=== PATIENT | male | born 1945 | race Caucasian/White ===

== ENCOUNTER 2018-10-24 10:44 | Outpatient (CLI) | payer MEDICARE ==
[2018-10-24 11:34] LABS: BASOPHILS # (AUTO) 0.1 X10'3 (0-0.2); BASOPHILS % (AUTO) 1.6 % (0-1); EOSINOPHILS # (AUTO) 0.1 X10'3 (0-0.9); EOSINOPHILS % (AUTO) 1.5 % (0-6); HEMATOCRIT 39.8 % (42.0-52.0); HEMOGLOBIN 13.3 g/dl (14.0-17.9); LYMPHOCYTES # (AUTO) 0.9 X10'3 (1.1-4.8); MEAN CORPUSCULAR HGB CONC 33.5 g/dL (33.0-36.5); MEAN CORPUSCULAR VOLUME 95.5 FL (78-98); MEAN PLATELET VOLUME 7.9 FL (7.4-10.4); MONOCYTES # (AUTO) 0.5 X10'3 (0-0.9); MONOCYTES % (AUTO) 12.9 % (2-12); NEUTROPHILS # (AUTO) 2.4 X10'3 (1.8-7.7); PLATELET COUNT 250 X10'3 (140-440); RED BLOOD COUNT 4.17 X10'6 (4.70-6.10); RED CELL DISTRIBUTION WIDTH 14.1 % (11.5-14.5); WHITE BLOOD COUNT 3.9 X10'3 (4.5-11.0)
[2018-10-24 11:42] LABS: PARTIAL THROMBOPLASTIN TIME 27 SECONDS (22-32); PROTHROMBIN TIME 10.4 SECONDS (9.0-12.0)
[2018-10-24 11:50] LABS: ALANINE AMINOTRANSFERASE 28 U/L (12-78); ALBUMIN 3.5 G/DL (3.4-5.0); ALKALINE PHOSPHATASE 60 IU/L (46-116); ANION GAP 6 (8-16); ASPARTATE AMINO TRANSFERASE 19 U/L (10-37); BILIRUBIN,TOTAL 0.3 MG/DL (0.1-1.0); BLOOD UREA NITROGEN 19 MG/DL (7-18); BUN/CREATININE RATIO 19.6 (5.4-32.0); CALCIUM 9.3 MG/DL (8.5-10.1); CHLORIDE 103 MMOL/L (99-107); CREATININE 0.97 MG/DL (0.60-1.10); GLUCOSE 79 MG/DL (70-104); POTASSIUM 4.6 MMOL/L (3.5-5.1); SODIUM 138 MMOL/L (135-145); TOTAL CARBON DIOXIDE 28.9 MMOL/L (24-32); eGFR 76 ML/MIN
== END 2018-10-24 23:59 | disposition home or self-care (01) ==
LOC: LAB 10:44
PROVIDERS: ATTEND Otolaryngology
DX: D69.1 Qualitative platelet defects (principal)
CPT/HCPCS: 36415; 80053; 85025; 85576; 85610; 85730

== ENCOUNTER 2023-09-18 07:28 | Day surgery (SDC) | payer OTHER, MEDICARE ==
[2023-09-12 14:51] LABS: BASOPHILS # (AUTO) 0.1 X10'3 (0-0.2); BASOPHILS % (AUTO) 1.2 % (0-1); EOSINOPHILS # (AUTO) 0.1 X10'3 (0-0.9); EOSINOPHILS % (AUTO) 1.7 % (0-6); LYMPHOCYTES # (AUTO) 1.1 X10'3 (1.1-4.8); LYMPHOCYTES % (AUTO) 23.3 % (21-51); MEAN CORPUSCULAR HEMOGLOBIN 31.3 PG (27.0-31.0); MEAN CORPUSCULAR HGB CONC 32.9 g/dL (33.0-36.5); MEAN CORPUSCULAR VOLUME 95.3 FL (78-98); MEAN PLATELET VOLUME 8.4 FL (7.4-10.4); MONOCYTES # (AUTO) 0.7 X10'3 (0-0.9); MONOCYTES % (AUTO) 14.4 % (2-12); NEUTROPHILS # (AUTO) 2.9 X10'3 (1.8-7.7); NEUTROPHILS % (AUTO) 59.4 % (42-75); PRE OP HEMATOCRIT 38.9 % (42.0-52.0); PRE OP HEMOGLOBIN 12.8 g/dL (14.0-17.9); PRE OP PLATELET COUNT 198 X10'3 (140-440); PRE OP WHITE BLOOD COUNT 4.9 10'3 (4.8-10.8); RED BLOOD COUNT 4.08 X10'6 (4.70-6.10); RED CELL DISTRIBUTION WIDTH 14.8 % (11.5-14.5)
[2023-09-12 15:14] LABS: ALBUMIN 3.4 G/DL (3.4-5.0); ALKALINE PHOSPHATASE 54 IU/L (46-116); BLOOD UREA NITROGEN 20 MG/DL (7-18); BUN/CREATININE RATIO 15.3 (10.0-20.0); CALCIUM 8.9 MG/DL (8.5-10.1); CHLORIDE 107 MMOL/L (99-107); CREATININE 1.31 MG/DL (0.60-1.10); PRE OP ALT 42 U/L (30-65); PRE OP ANION GAP 11 (8-16); PRE OP AST 28 U/L (10-37); PRE OP BILIRUB, TOTAL 0.3 MG/DL (0.0-1.0); PRE OP GLUCOSE 120 MG/DL (70-104); PRE OP POTASSIUM 4.2 MMOL/L (3.4-5.1); PRE OP SODIUM 144 MMOL/L (135-145); TOTAL CARBON DIOXIDE 26.4 MMOL/L (24-32); TOTAL PROTEIN 6.9 G/DL (6.4-8.2); eGFR 53 ML/MIN
[~2023-09-18] VITALS: Ht 190.5 cm; Wt 92.0 kg
[2023-09-18] VITALS (12 sets, daily range): BP systolic 92–138; BP diastolic 52–82; PULSE 46–59; RESP 12–17; TEMP 97.6; O2SAT 93–98
[2023-09-18] MEDS: cefazolin 2gm/D5W 100mL 100 ML IV ONE (05:30)
[~2023-09-18 07:28] MED LIST: APIX5TAB3 PO; CALC-1215 PO; CHOL200012 PO; DOCUMENT DATE & TIME OF BETA-BLOCKER PO ONE; FINA5TAB11 PO; HYDR12.55 PO; LISI40TA13 PO; LOP12.5T PO; OMEG-166 PO; VITA1CAP PO; [UNRECOGNIZED DRUG - CODE] PO
[2023-09-18] MEDS: ringers solution, lacted 1,000 ML IV SCH (07:54)
[2023-09-18] MEDS: famotidine 20mg tablet PO ONE (07:54)
[2023-09-18] MEDS ORDERED: LIDOcaine 0.5% (5mg/ml) 50ml vial ONE (09:11)
[2023-09-18] MEDS ORDERED: fentaNYL/PF 50MCG/1 ML 2ML syringe ONE (09:12)
[2023-09-18] MEDS ORDERED: midazolam 1 mg/ML 2ml injection ONE (09:12)
[2023-09-18] MEDS ORDERED: ringers solution, lacted 1,000 ML IV SCH (09:30)
[2023-09-18] MEDS ORDERED: proCHLORperazine 10 MG/2 ml inj IV PRN (09:30)
[2023-09-18] MEDS ORDERED: ondansetron/PF 4mg/2ml inj IV PRN (09:30)
[2023-09-18] MEDS ORDERED: morphine 4 MG/ML inj SYRINge IV PRN (09:30)
[2023-09-18] MEDS ORDERED: meperidine/PF 25mg/ml syringe IV PRN ×2 (09:30)
[2023-09-18] MEDS ORDERED: morphine 2 MG/ML inj. syringe IV PRN (09:30)
[2023-09-18] MEDS ORDERED: propofol inj 20 ML IV ONE (09:49)
[2023-09-18] MEDS: LIDOcaine 2% (20mg/ml) 5ml vial ONE (09:56)
[2023-09-18] MEDS: meperidine/PF 25mg/ml syringe IV PRN (10:08)
== END 2023-09-18 11:32 | disposition home or self-care (01) ==
LOC: PAS 07:28
PROVIDERS: ATTEND Orthopaedic Surgery Hand Surgery
DX: M70.21 Olecranon bursitis, right elbow (principal); M1A.0211 Idiopathic chronic gout, right elbow, with tophus (tophi); M10.042 Idiopathic gout, left hand; I10 Essential (primary) hypertension; G47.30 Sleep apnea, unspecified; Z79.899 Other long term (current) drug therapy; Z98.890 Other specified postprocedural states; Z96.652 Presence of left artificial knee joint
CPT/HCPCS: 24105; 26115; 36415; 80053; 82948; 85025; J0690; J2175; J2250; J2704; J3010; J3490; J7030; J7120; Z7506; Z7512; A4215; A4565; A4618; A6446; A6449; A7000

== ENCOUNTER 2024-08-05 06:20 | Day surgery (SDC) | payer OTHER, MEDICARE ==
[2024-07-31 14:49] LABS: BASOPHILS # (AUTO) 0.1 X10'3 (0-0.2); EOSINOPHILS # (AUTO) 0.2 X10'3 (0-0.9); EOSINOPHILS % (AUTO) 3.7 % (0-6); LYMPHOCYTES # (AUTO) 0.9 X10'3 (1.1-4.8); LYMPHOCYTES % (AUTO) 15.1 % (21-51); MEAN CORPUSCULAR HEMOGLOBIN 32.1 PG (27.0-31.0); MEAN CORPUSCULAR HGB CONC 33.1 g/dL (33.0-36.5); MEAN CORPUSCULAR VOLUME 97.1 FL (78-98); MEAN PLATELET VOLUME 7.9 FL (7.4-10.4); MONOCYTES # (AUTO) 0.8 X10'3 (0-0.9); MONOCYTES % (AUTO) 13.3 % (2-12); NEUTROPHILS # (AUTO) 3.8 X10'3 (1.8-7.7); NEUTROPHILS % (AUTO) 66.9 % (42-75); PRE OP HEMATOCRIT 35.6 % (42.0-52.0); PRE OP HEMOGLOBIN 11.8 g/dL (14.0-17.9); PRE OP PLATELET COUNT 241 X10'3 (140-440); PRE OP WHITE BLOOD COUNT 5.7 10'3 (4.8-10.8); RED BLOOD COUNT 3.66 X10'6 (4.70-6.10); RED CELL DISTRIBUTION WIDTH 14.9 % (11.5-14.5)
[2024-07-31 15:28] LABS: ALBUMIN 3.6 G/DL (3.4-5.0); ALBUMIN/GLOBULIN RATIO 1.2 (1.1-1.5); ALKALINE PHOSPHATASE 68 IU/L (46-116); BLOOD UREA NITROGEN 28 MG/DL (7-18); BUN/CREATININE RATIO 21.4 (10.0-20.0); CALCIUM 8.9 MG/DL (8.5-10.1); CHLORIDE 105 MMOL/L (99-107); CREATININE 1.31 MG/DL (0.60-1.10); PRE OP ALT 34 U/L (30-65); PRE OP ANION GAP 9 (8-16); PRE OP AST 22 U/L (10-37); PRE OP BILIRUB, TOTAL 0.2 MG/DL (0.0-1.0); PRE OP GLUCOSE 181 MG/DL (70-104); PRE OP POTASSIUM 4.2 MMOL/L (3.4-5.1); PRE OP SODIUM 138 MMOL/L (135-145); TOTAL CARBON DIOXIDE 24.1 MMOL/L (24-32); TOTAL PROTEIN 6.6 G/DL (6.4-8.2); eGFR 53 ML/MIN
[2024-08-05] VITALS (7 sets, daily range): BP systolic 137–142; BP diastolic 76–79; PULSE 53–66; RESP 11–16; TEMP 97.7; O2SAT 97–100
[~2024-08-05] VITALS: Ht 190.5 cm; Wt 91.1 kg
[~2024-08-05 06:20] MED LIST changes: +ALLO100T15 PO; +AMLO5TAB PO; -DOCUMENT DATE & TIME OF BETA-BLOCKER PO ONE; +FLEC50TA28 PO
[2024-08-05] MEDS ORDERED: BUPIVAcaine/PF 2.5mg/ml (0.25%) 10ml vial ONE (06:48)
[2024-08-05] MEDS ORDERED: LIDOcaine 2% (20mg/ml) 5ml vial ONE (06:48)
[2024-08-05] MEDS: ringers solution, lacted 1,000 ML IV SCH (07:12)
[2024-08-05] MEDS: famotidine 20mg tablet PO ONE (07:12)
[2024-08-05] MEDS: ceFAZolin 2gm in dextrose, iso 50 ML IV ONE (07:13)
[2024-08-05] MEDS ORDERED: morphine 2 MG/ML inj. syringe IV PRN (07:45)
[2024-08-05] MEDS ORDERED: ringers solution, lacted 1,000 ML IV SCH (07:45)
[2024-08-05] MEDS ORDERED: hydrALAZINE 20mg/ml inj. IV PRN (07:45)
[2024-08-05] MEDS ORDERED: morphine 4 MG/ML inj SYRINge IV PRN (07:45)
[2024-08-05] MEDS ORDERED: ondansetron/PF 4mg/2ml inj IV PRN (07:45)
[2024-08-05] MEDS ORDERED: midazolam 1 mg/ML 2ml injection ONE (08:34)
[2024-08-05] MEDS ORDERED: fentaNYL/PF 50MCG/1 ML 2ML syringe ONE (08:34)
[2024-08-05] MEDS ORDERED: propofol inj 20 ML IV ONE (08:36)
== END 2024-08-05 09:36 | disposition home or self-care (01) ==
LOC: PAS 06:20
PROVIDERS: ATTEND Orthopaedic Surgery Hand Surgery
DX: G56.02 Carpal tunnel syndrome, left upper limb (principal); I10 Essential (primary) hypertension; G47.33 Obstructive sleep apnea (adult) (pediatric); M75.42 Impingement syndrome of left shoulder; M19.011 Primary osteoarthritis, right shoulder; Z79.899 Other long term (current) drug therapy; Z98.890 Other specified postprocedural states; Z86.718 Personal history of other venous thrombosis and embolism; Z96.652 Presence of left artificial knee joint
CPT/HCPCS: 36415; 64721; 80053; 82948; 85025; J0690; J2003; J2250; J2704; J3010; J3490; J7030; J7120; Z7506; Z7512; A4215; A6449